=== PATIENT | male | born 1960 ===

== ENCOUNTER 2018-08-16 14:20 | Inpatient (IN) | payer BC ==
[2018-08-16 14:20] VITALS: BMI 27.3
--- NOTE | 2018-08-16 15:12 | ED PDOC ---
Arrival/HPI - General Chief Complaint: Lower Extremity Problem/Injury Time Seen by Provider: 08/16/18 14:43 Historian: Patient - History of Present Illness Narrative History of Present Illness (Text): 08/16/18 16:43 58yo male with with pmhx of hypertension and recent embolic stroke referred to ED by Dr. Moore for severe right calf pain. Patient states he had angioplasty few days ago and started having the calf pain s/p. States he is currently on Coumadin 4.5mg daily. Denies chest pain, SOB, diaphoresis, nausea, vomiting, dizziness, any other complaint. Past Medical History - Provider Review Nursing Documentation Reviewed: Yes - Infectious Disease Hx of Infectious Diseases: None - Cardiac Hx Cardiac Disorders: No - Pulmonary Hx Respiratory Disorders: No - Neurological Hx Neurological Disorder: No HX Cerebrovascular Accident: Yes - HEENT Hx HEENT Disorder: Yes (hard of hearing) - Renal Hx Renal Disorder: No - Endocrine/Metabolic Hx Endocrine Disorders: No - Hematological/Oncological Hx Blood Disorders: No - Integumentary Hx Dermatological Disorder: No - Musculoskeletal/Rheumatological Hx Musculoskeletal Disorders: No - Gastrointestinal Hx Gastrointestinal Disorders: No - Genitourinary/Gynecological Hx Genitourinary Disorders: No - Psychiatric Hx Psychophysiologic Disorder: No Hx Substance Use: No - Surgical History Hx Tonsillectomy: Yes Other/Comment: loop recorder - Anesthesia Hx Anesthesia: Yes Hx Anesthesia Reactions: No Family/Social History - Physician Review Nursing Documentation Reviewed: Yes Family/Social History: Unknown Family HX Smoking Status: Current Some Days Smoker Hx Alcohol Use: Yes Hx Substance Use: No Allergies/Home Meds Allergies/Adverse Reactions: Allergies No Known Allergies Allergy (Verified 09/13/15 10:32) Home Medications: Home Meds Medication Instructions Recorded Confirmed Rosuvastatin Calcium [Crestor] 1 tab PO HS 08/16/18 08/16/18 Warfarin [Coumadin] 4.5 mg PO DAILY 08/16/18 08/16/18 amLODIPine [Norvasc] 10 mg PO PRN PRN 08/16/18 08/16/18 Review of Systems - Physician Review All systems were reviewed & negative as marked: Yes - Review of Systems Constitutional: Normal Eyes: Normal ENT: Normal Respiratory: Normal Cardiovascular: Normal Gastrointestinal: Normal Genitourinary Male: Normal Musculoskeletal: Arthralgias (Right calf pain) Skin: Normal Neurological: Normal Endocrine: Normal Hemo/Lymphatic: Normal Psychiatric: Normal Physical Exam Vital Signs Reviewed: Yes Vital Signs Temp Pulse Resp BP Pulse Ox 08/16/18 14:39 98.6 F 76 18 100/65 98 Temperature: Afebrile Blood Pressure: Normal Pulse: Regular Respiratory Rate: Normal Appearance: Positive for: Well-Appearing, Non-Toxic, Comfortable Pain Distress: None Mental Status: Positive for: Alert and Oriented X 3 - Systems Exam Head: Present: Atraumatic, Normocephalic Pupils: Present: PERRL Extroacular Muscles: Present: EOMI Conjunctiva: Present: Normal Mouth: Present: Moist Mucous Membranes Neck: Present: Normal Range of Motion Respiratory/Chest: Present: Clear to Auscultation, Good Air Exchange. No: Respiratory Distress, Accessory Muscle Use Cardiovascular: Present: Regular Rate and Rhythm, Normal S1, S2. No: Murmurs Abdomen: No: Tenderness, Distention, Peritoneal Signs Back: Present: Normal Inspection Upper Extremity: Present: Normal Inspection. No: Cyanosis, Edema Lower Extremity: Present: CALF TENDERNESS (Right calf), NORMAL PULSES, Miguel's Sign (Positive on right leg), Neurovascularly Intact. No: Edema, Swelling, Erythema, Temperature Abnormalties Neurological: Present: GCS=15, CN II-XII Intact, Speech Normal Skin: Present: Warm, Dry, Normal Color. No: Rashes Psychiatric: Present: Alert, Oriented x 3, Normal Insight, Normal Concentration Medical Decision Making ED Course and Treatment: 08/16/18 18:17 58yo male referred to RD for right calf pain. Pt was very tender on palpation of his right calf. PT is currently on Coumadin s/p embolic stroke. Labs Pt/PTT/INR Doppler US 08/16/18 18:20 Doppler US report - Isolated thrombus in a right gastrocnemius vein. Lab was reviewed and pt is however therapeutic with his INR of 2.99. Case was DW Dr. Moore and pt was admitted to her service. She requested vancomycin and Rocephin for possible thrombophelbitis and it was ordered. All result and plan was DW the pt and he agreed - RAD Interpretation Radiology Orders: 08/16/18 14:45 DUPLEX LOWER EXTRM VEIN BILAT [US] Stat Disposition/Present on Arrival - Present on Arrival Any Indicators Present on Arrival: No History of DVT/PE: No History of Uncontrolled Diabetes: No Urinary Catheter: No History of Decub. Ulcer: No History Surgical Site Infection Following: None - Disposition Have Diagnosis and Disposition been Completed?: Yes Diagnosis: DVT (deep venous thrombosis) Disposition: HOME/ ROUTINE Disposition Time: 16:40 Patient Plan: Admission Patient Problems: Current Active Problems Problem Status Onset DVT (deep venous thrombosis) Acute Condition: STABLE
--- NOTE | 2018-08-16 16:14 | US ---
HISTORY: Leg pain and swelling. Evaluate for DVT PHYSICIAN(S): Ruben Dee MD. TECHNIQUE: Duplex sonography and color-flow Doppler with graded compression were used to evaluate the deep venous systems of both lower extremities. FINDINGS: There is isolated occlusive thrombus in a solitary right gastrocnemius vein. The visualized tibial veins on the right are patent and compressible. The right popliteal vein, right femoral vein, and right common femoral vein are normal and compressible. There is no sonographic evidence for deep venous thrombosis the visualized segments of the left upper extremity IMPRESSION: Isolated thrombus in a right gastrocnemius vein. Follow-up ultrasound in 7-10 days is recommended.
[2018-08-16 16:38] LABS: ALB/GLOB RATIO 1.3 (1.1-1.8); ALBUMIN 3.9 g/dL (3.0-4.8); ALT/SGPT 41 U/L (7-56); AST/SGOT 27 U/L (17-59); BLOOD UREA NITROGEN 14 mg/dL (7-21); CALCIUM 9.1 mg/dL (8.4-10.5); GFR NON-AFRICAN AMERICAN > 60
[2018-08-16 16:54] LABS: BASO # 0.02 K/mm3 (0.0-2.0); BASO % 0.2 % (0.0-3.0); EOS # 0.1 (0.0-0.7); EOS % 0.5 % (1.5-5.0); GRAN # 7.04 (1.4-6.5); GRAN % 73.4 % (50.0-68.0); HEMOGLOBIN 10.5 g/dL (14.0-18.0); MEAN CORPUSCULAR HGB CONC 33.3 g/dl (31.0-37.0); MEAN PLATELET VOLUME 10.9 fl (7.0-11.0); MONO # 0.5 (0.1-0.6); MONO % 4.9 % (1.0-6.0); RBC 3.5 10^6/uL (3.5-6.1); RED CELL DISTRIBUTION WIDTH 13.9 % (11.5-14.5); WHITE BLOOD COUNT 9.6 10^3/ul (4.5-11.0)
[2018-08-16 16:56] LABS: INR 2.99; PARTIAL THROMBOPLASTIN TIME 34.5 Seconds (25.1-36.5); PROTHROMBIN TIME 34.9 SECONDS (9.4-12.5)
[2018-08-16] MEDS ORDERED: Vancomycin 1gm in NS 250ml 1 GM/250 ML BAG IVPB STA (17:36)
[2018-08-16] MEDS ORDERED: cefTRIAXone 1 gm 1 GM/100 ML BAG IVPB STA (17:37)
[2018-08-16] MEDS ORDERED: Oxycodone/Acetaminophen 5/325 mg Tab PO STA (18:19)
[2018-08-16] MEDS ORDERED: Oxycodone/Acetaminophen 5/325 mg Tab PO PRN (19:50)
[2018-08-16 22:28] VITALS: RESP 20
--- NOTE | 2018-08-17 06:15 | HP ---
HISTORY OF PRESENT ILLNESS: The patient is 58 years old, recently had an embolic stroke, after that as a workup, he end up having loop recorder and he was sent home. He was sent home on Lovenox and p.o. Coumadin but he end up coming back with profuse bleeding from his chest wall site of insertion so he was given FFP and was under observation, he end up having loop recorder removed. Three days ago, he called my office that his left leg is hurting. I ordered venous Doppler that was negative for DVT. He was advised to take Tylenol with no significant relief. Today, he came in office crying with pain. So he was sent to emergency room for further evaluation for possible muscular issue versus new blood clot. PAST MEDICAL HISTORY: Significant for gastritis and recent embolic stroke to occipital, bilateral thalamic and cerebellar, stroke leading to extreme dizziness. ALLERGIES: HE IS NOT ALLERGIC TO ANY MEDICATIONS. MEDICATIONS: At home, he is on Coumadin 3 mg daily, he is on amlodipine 10 mg daily, Crestor 5 mg daily. SOCIAL HISTORY: He is , lives with his . He socially drinks once in a while and socially smokes. PHYSICAL EXAMINATION: GENERAL: He is awake, alert, oriented, walking with cane, complained of pain in the left leg, communicative. VITAL SIGNS: He is afebrile, pulse 82, respirations 18, blood pressure 126/82. LUNGS: Bilateral fair airflow. No rhonchi or crackle. HEART: S1 ,S2 audible. ABDOMEN: Soft, nontender. No rebound. No guarding. NEUROLOGICAL: Patient is awake, alert, oriented, communicative. LABORATORY EXAM: WBC is 9.6, hemoglobin 10.5, hematocrit 31.5, platelet 288. PT 39.9. INR 2.99, PTT 34.5. Chemistry: Sodium 139, potassium 4.1, chloride 105, CO2 of 25, BUN 14, creatinine 1. Blood sugar 84. LFTs are within normal limit. He has leg Doppler done. He has isolated thrombus in his left gastrocnemius vein. However, the leg Doppler done on was unremarkable. ASSESSMENT: 1. Right calf pain secondary to gastrocnemius vein thrombosis with suppurative thrombophlebitis. 2. Recent embolic stroke. 3. Status post loop recorder removal secondary to hemorrhage. PLAN: We will give warm compresses to the area. Start him on antibiotics, analgesic as needed. We will start him on Norvasc 5 mg daily and start him on small dose of statins. We will follow up in a.m. Dr. Bay also has been consulted. Jacqueline Moore MD
[2018-08-17 06:23] LABS: INR 3.08; PROTHROMBIN TIME 36.3 SECONDS (9.4-12.5)
[2018-08-17 08:12] VITALS: BP 116/81; PULSE 61; TEMP 98; O2SAT 97
--- NOTE | 2018-08-17 09:59 | RAD ---
Date of service: 08/16/2018 HISTORY: admission COMPARISON: No prior. FINDINGS: LUNGS: No active pulmonary disease. PLEURA: No significant pleural effusion identified, no pneumothorax apparent. CARDIOVASCULAR: Normal. OSSEOUS STRUCTURES: No significant abnormalities. VISUALIZED UPPER ABDOMEN: Normal. OTHER FINDINGS: None. IMPRESSION: No acute cardiopulmonary disease appreciated.
[2018-08-17] MEDS ORDERED: cefTRIAXone 1 gm 1 GM/100 ML BAG IVPB SCH (10:00)
--- NOTE | 2018-08-17 10:21 | CARD ---
APPROVED REPORT Date of service: 08/16/2018 EKG Measurement Heart [id number] <Conclusion> Normal sinus rhythm Minimal voltage criteria for LVH, may be normal variant
--- NOTE | 2018-08-17 10:54 | CON ---
DATE: 08/17/2018 HISTORY OF PRESENT ILLNESS: Mr. Burkett is a 58-year-old male, recently had an embolic stroke. He is being worked up for thromboembolism. He presented with DVT in right lower extremity in gastrocnemius, isolated. He is currently on Coumadin with therapeutic INR. Complaining of pain in the right leg. No nausea. No vomiting. No chest pain. No shortness of breath. PAST MEDICAL HISTORY: Gastritis, recent embolic stroke. ALLERGIES: NO KNOWN DRUG ALLERGIES. HOME MEDICATIONS: Coumadin 3 mg daily, amlodipine 10 mg, Crestor 5 mg. SOCIAL HISTORY: , lives with the . PERSONAL HISTORY: Nonsmoker. No history of alcohol abuse. PHYSICAL EXAMINATION: GENERAL: Comfortable in bed. Awake, alert, oriented. VITAL SIGNS: Afebrile, temperature 98.7; heart rate 82 per minute; blood pressure 126/82. LUNGS: Air entry present and equal, bilateral. No added sound. CARDIOVASCULAR: S1, S2 normal. No murmur. No gallop. ABDOMEN: Soft, nontender. No hepatosplenomegaly. EXTREMITY: No edema. Right calf tender. LABORATORY DATA: White count 9.6, hemoglobin 10.5, hematocrit 31.5, platelet 288. INR 2.9. Sodium 139, potassium 4.1, creatinine 1. LFTs within normal limits. ASSESSMENT: Recent deep vein thrombosis, right gastrocnemius with superficial thrombophlebitis. Recent embolic stroke. Status post loop recorder. Status post hemorrhage, removal of the recorder. PLAN: He is therapeutic on Coumadin. We will continue Coumadin 3 mg daily. Monitor PT/INR. 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 Factor V Leiden, prothrombin gene mutation, antiphospholipid antibodies were negative. Protein C, protein S levels were not done during last hospitalization. We will test protein C, protein S in 1-2 weeks. Recent thromboembolism can alter those levels. We will also check the homocysteine level which can be elevated with MTHFR gene mutation. Folic acid 1 mg p.o. daily for lifelong. He will need anticoagulation for thromboembolic stroke for at least 6 months to 1 year. Renal function is within normal limit. Thank you, Dr. Moore for allowing us to participate in Mr. Burkett's care. We will continue to follow. Massiel Bay MD [facility] # [id number]
--- NOTE | 2018-08-18 10:40 | DS ---
HISTORY OF PRESENT ILLNESS: The patient is a 58-year-old, who was admitted yesterday because of excruciating pain in his right calf. His sonogram done on 08/14/2018 was negative; however, sonogram done yesterday shows gastrocnemius vein thrombosis, possible thrombophlebitis causing pain. Otherwise, no chest pain, no shortness of breath. No active bleeding anywhere. PHYSICAL EXAMINATION: VITAL SIGNS: He is afebrile. Pulse 61, respirations 20, blood pressure 116/81. LUNGS: Bilateral fair airflow. No rhonchi or crackle. HEART: S1 ,S2 audible. ABDOMEN: Soft, nontender. No rebound. No guarding. NEUROLOGICAL: The patient is awake, alert, oriented, communicative. LABORATORY DATA: His PT is 36.3, INR 3.08. Chemistry: Sodium 138, potassium 4.1, chloride 105, CO2 of 25, BUN 14, creatinine 1, blood sugar of 84. ASSESSMENT: 1. History of embolic stroke. 2. Right calf deep vein thrombosis. 3. Hypertension. 4. Hyperlipidemia. 5. Anemia secondary to blood loss. PLAN: The patient will be discharged home today. We will hold Coumadin for today. He is given iron infusion. We will discharge him on Ceftin 500 twice a day for 5 days and we will start him on folic acid 1 mg daily and he will continue Crestor 5 mg daily at home and I will follow up him in office next week. Jacqueline Moore MD
== END 2018-08-17 16:15 | disposition home or self-care (01) | DRG 301 ==
LOC: ED 14:20 → ERH 18:11 → 3RNO 21:54
PROVIDERS: ADMIT Internal Medicine; ATTEND Internal Medicine
DX: I82.4Z1 Acute embolism and thrombosis of unspecified deep veins of right distal lower extremity (principal); D50.0 Iron deficiency anemia secondary to blood loss (chronic); E78.5 Hyperlipidemia, unspecified; H91.90 Unspecified hearing loss, unspecified ear; I10 Essential (primary) hypertension; Z79.01 Long term (current) use of anticoagulants; Z86.73 Personal history of transient ischemic attack (TIA), and cerebral infarction without residual deficits

== ENCOUNTER 2018-09-22 11:18 | Emergency (ER) | payer BC, OTHER ==
[2018-09-22 11:18] VITALS: BMI 28.8
--- NOTE | 2018-09-22 11:52 | ED PDOC ---
Arrival/HPI - General Historian: Patient - History of Present Illness Narrative History of Present Illness (Text): 09/22/18 11:48 58 year old male with a past medical history of hemorrhagic cva, right calf dvt, hypertension, hyperlipidemia, and anemia who presents today with posterior headache since last night. Patient rates the pain initially last night a 10/10, however upon presentation today he rates it a 2/10 in severity. Patient took his blood pressure and it read 140's systolic and was instructed by PMD Dr. Moore to take his Norvasc. Patient also admits to losing balance once last night. Presently, he denies any chest pain, palpitations, fevers, chills, constipation, diarrhea, syncopal episodes, changes in vision, or any other complaints. PMD: Dr. Moore Neurologist: Dr. Flood Medical history: htn, hld, anemia, r calf dvt, hemorrhagic cva Mediciations: Coumadin, Crestor, Norvasc Allergies: Hay Fever Social history: Cigars socially. Denies alcohol or illicit drug. Time/Duration: 24 hours Symptom Onset: Sudden Symptom Course: Unchanged Quality: Throbbing Severity Level: 2 Activities at Onset: Rest Context: Sitting <Lars Robertson - Last Filed: 09/22/18 18:12> <Shai Jacobson DO - Last Filed: 09/23/18 10:54> - General Chief Complaint: Weakness/Neurological Deficit Time Seen by Provider: 09/22/18 11:21 Past Medical History - Provider Review Nursing Documentation Reviewed: Yes - Infectious Disease Hx of Infectious Diseases: None - Cardiac Hx Hypertension: Yes - Pulmonary Hx Respiratory Disorders: No - Neurological Hx Neurological Disorder: No HX Cerebrovascular Accident: Yes (July 2018) Hx Transient Ischemic Attacks (TIA): Yes Other/Comment: hemorrhagic stroke - HEENT Hx HEENT Disorder: Yes (hard of hearing) - Renal Hx Renal Disorder: No - Endocrine/Metabolic Hx Endocrine Disorders: No - Hematological/Oncological Hx Blood Disorders: No - Integumentary Hx Dermatological Disorder: No - Musculoskeletal/Rheumatological Hx Musculoskeletal Disorders: No Hx Falls: No - Gastrointestinal Hx Gastrointestinal Disorders: No - Genitourinary/Gynecological Hx Genitourinary Disorders: No - Psychiatric Hx Psychophysiologic Disorder: No Hx Substance Use: No - Surgical History Other/Comment: loop recorder - Anesthesia Hx Anesthesia: Yes Hx Anesthesia Reactions: No Hx Malignant Hyperthermia: No <Lars Robertson - Last Filed: 09/22/18 18:12> Family/Social History - Physician Review Nursing Documentation Reviewed: Yes Family/Social History: No Known Family HX Smoking Status: Former Smoker Hx Alcohol Use: Yes (occasionally) Hx Substance Use: No <Lars Robertson - Last Filed: 09/22/18 18:12> Allergies/Home Meds <Lars Robertson - Last Filed: 09/22/18 18:12> <Shai Jacobson DO - Last Filed: 09/23/18 10:54> Allergies/Adverse Reactions: Allergies No Known Allergies Allergy (Verified 09/22/18 11:32) Home Medications: Home Meds Medication Instructions Recorded Confirmed Rosuvastatin Calcium [Crestor] 1 tab PO HS 08/16/18 09/22/18 amLODIPine [Norvasc] 10 mg PO PRN PRN 08/16/18 09/22/18 Carvedilol [Coreg] 3.125 mg PO DAILY 09/06/18 09/22/18 Review of Systems - Physician Review All systems were reviewed & negative as marked: Yes - Review of Systems Constitutional: Normal. absent: Fatigue, Weight Change, Fevers Eyes: Normal. absent: Vision Changes, Photophobia ENT: Normal. absent: Hearing Changes, Tinnitus Respiratory: Normal. absent: SOB, Cough Cardiovascular: Normal. absent: Chest Pain, Palpitations Gastrointestinal: Normal. absent: Abdominal Pain, Stool Changes, Diarrhea, Nausea, Vomiting Genitourinary Male: Normal. absent: Dysuria, Frequency, Hematuria Musculoskeletal: Normal. absent: Arthralgias, Back Pain, Neck Pain Skin: Normal. absent: Rash, Pruritis Neurological: Headache. absent: Dizziness, Facial Droop, Disequilibrium Endocrine: Normal. absent: Diaphoresis, Polyuria, Polydipsia Hemo/Lymphatic: Normal. absent: Adenopathy, Easy Bleeding <Lars Robertson - Last Filed: 09/22/18 18:12> Physical Exam Vital Signs Reviewed: Yes Vital Signs Temp Pulse Resp BP Pulse Ox 09/22/18 11:24 97.8 F 89 19 119/80 99 Temperature: Afebrile Blood Pressure: Normal Pulse: Regular Respiratory Rate: Normal Appearance: Positive for: Well-Appearing, Non-Toxic, Comfortable Pain Distress: None Mental Status: Positive for: Alert and Oriented X 3. No: Confused, Agitated - Systems Exam Head: Present: Atraumatic, Normocephalic Pupils: Present: PERRL. No: Sluggish, Non-Reactive Extroacular Muscles: Present: EOMI. No: Gaze Palsy Conjunctiva: Present: Normal. No: Injected Mouth: Present: Moist Mucous Membranes. No: Dry, Normal Teeth Neck: Present: Normal Range of Motion. No: Meningeal Signs, JVD Respiratory/Chest: Present: Clear to Auscultation, Good Air Exchange. No: Wheezes, Decreased Breath Sounds Cardiovascular: Present: Regular Rate and Rhythm, Normal S1, S2. No: Murmurs Abdomen: Present: Normal Bowel Sounds. No: Tenderness, Distention, Guarding, Feeding Tubes Upper Extremity: Present: Normal Inspection. No: Cyanosis, Edema, Erythema Lower Extremity: Present: Normal Inspection. No: Edema Neurological: Present: CN II-XII Intact, Speech Normal. No: Normal Sensory Function, Normal Cerebellar Funct Skin: Present: Dry. No: Rashes, Normal Color Psychiatric: Present: Oriented x 3, Normal Insight <Lars Robertson - Last Filed: 09/22/18 18:12> Vital Signs Temp Pulse Resp BP Pulse Ox 09/22/18 11:24 97.8 F 89 19 119/80 99 <Shai Jacobson DO - Last Filed: 09/23/18 10:54> Medical Decision Making ED Course and Treatment: 09/22/18 11:55 58 year old male with a past medical history of htn, hld, anemia, right calf dvt, and hemorrhagic cva presents with throbbing headache. CVA vs. Space occupying lesion Plan: Head ct cbc cmp Troponin - RAD Interpretation Radiology Orders: 09/22/18 11:46 HEAD W/O CONTRAST [CT] Stat - EKG Interpretation EKG Interpretation (Text): 09/22/18 12:39 NSR @[address]-T Changes Interpreted by ED Physician: Yes Comparison: Similar to previous EKG <Lars Robertson - Last Filed: 09/22/18 18:12> ED Course and Treatment: 09/22/18 12:35 Polo Burkett is a 58 year old male with a past medical history includes hemorrhagic CVA, DVT, HTN, HLD, and anemia, who presents to the emergency department for a complaint of headache. In agreement with residents note, which includes further HPI details. Patient was seen and evaluated with resident, came up with plan and treatment together. - RAD Interpretation Radiology Orders: 09/22/18 11:46 HEAD W/O CONTRAST [CT] Stat <Shai Jacobson DO - Last Filed: 09/23/18 10:54> - PA / ZINC MINER / Resident Statement MARY has reviewed & agrees with the documentation as recorded. MARY has examined the patient and agrees with the treatment plan. <Shai Jacobson DO - Last Filed: 09/23/18 10:54> Disposition/Present on Arrival - Present on Arrival Any Indicators Present on Arrival: Yes History of DVT/PE: Yes History of Uncontrolled Diabetes: No Urinary Catheter: No History of Decub. Ulcer: No History Surgical Site Infection Following: None - Disposition Have Diagnosis and Disposition been Completed?: Yes Disposition Time: 13:15 Patient Plan: Discharge <Lars Robertson - Last Filed: 09/22/18 18:12> - Disposition Disposition Time: 12:50 <Shai Jacobson DO - Last Filed: 09/23/18 10:54> - Disposition Diagnosis: Headache Disposition: HOME/ ROUTINE Condition: IMPROVED Discharge Instructions (ExitCare): Headache, Adult (DC) Additional Instructions: POLO BURKETT, thank you for letting us take care of you today. The emergency medical care you received today was directed at your acute symptoms. If you were prescribed any medication, please fill it and take as directed. It may take several days for your symptoms to resolve. Return to the Emergency Department if your symptoms worsen, do not improve, or if you have any other problems. Please contact your doctor or call one of the physicians/clinics you have been referred to that are listed on the Patient Visit Information form that is included in your discharge packet. Bring any paperwork you were given at discharge with you along with any medications you are taking to your follow up visit. Our treatment cannot replace ongoing medical care by a primary care provider outside of the emergency department. [facility]. Follow up with your primary care doctor in 2-3 days for re-evaluation and further management. Return to hospital for any new or worsening symptoms. Referrals: Jacqueline Moore MD [Primary Care Provider] - Follow up with primary Forms: [employer] (Polish)
--- NOTE | 2018-09-22 12:40 | CT ---
Date of service: 09/22/2018 PROCEDURE: CT HEAD WITHOUT CONTRAST. HISTORY: hx of hemorrhagic cva COMPARISON: None available. TECHNIQUE: Axial computed tomography images were obtained through the head/brain without intravenous contrast. Radiation dose: Total exam DLP = 980.8 mGy-cm. This CT exam was performed using one or more of the following dose reduction techniques: Automated exposure control, adjustment of the mA and/or kV according to patient size, and/or use of iterative reconstruction technique. FINDINGS: HEMORRHAGE: No intracranial hemorrhage. BRAIN: No mass effect or edema. Old infarcts are seen in the cerebellar hemispheres right greater than left VENTRICLES: Unremarkable. No hydrocephalus. CALVARIUM: Unremarkable. PARANASAL SINUSES: Unremarkable as visualized. No significant inflammatory changes. MASTOID AIR CELLS: Unremarkable as visualized. No inflammatory changes. OTHER FINDINGS: None. IMPRESSION: No acute findings
[2018-09-22 12:49] LABS: ALB/GLOB RATIO 1.2 (1.1-1.8); ALBUMIN 4.1 g/dL (3.0-4.8); BLOOD UREA NITROGEN 11 mg/dL (7-21); CALCIUM 9.3 mg/dL (8.4-10.5); GFR NON-AFRICAN AMERICAN > 60
[2018-09-22 12:51] LABS: BASO # 0.04 K/mm3 (0.0-2.0); BASO % 0.5 % (0.0-3.0); EOS # 0.2 (0.0-0.7); EOS % 2.3 % (1.5-5.0); GRAN # 5.62 (1.4-6.5); GRAN % 67.6 % (50.0-68.0); HEMOGLOBIN 13.1 g/dL (14.0-18.0); MEAN CELL VOLUME 90.5 fl (80.0-105.0); MEAN CORPUSCULAR HEMOGLOBIN 29.7 pg (25.0-35.0); MEAN CORPUSCULAR HGB CONC 32.8 g/dl (31.0-37.0); MEAN PLATELET VOLUME 11.4 fl (7.0-11.0); MONO # 0.5 (0.1-0.6); MONO % 5.6 % (1.0-6.0); RBC 4.41 10^6/uL (3.5-6.1); RED CELL DISTRIBUTION WIDTH 13.4 % (11.5-14.5); WHITE BLOOD COUNT 8.3 10^3/uL (4.5-11.0)
[2018-09-22 12:54] LABS: AST/SGOT 43 U/L (17-59)
[2018-09-22 12:55] LABS: ALT/SGPT 40 U/L (7-56)
[2018-09-22 13:00] LABS: TROPONIN I < 0.01 ng/mL
[2018-09-22 13:44] VITALS: BP 127/82; PULSE 66; RESP 18; TEMP 98; O2SAT 97
--- NOTE | 2018-09-22 19:35 | CARD ---
APPROVED REPORT Date of service: 09/22/2018 EKG Measurement Heart [id number] <Conclusion> Normal sinus rhythm Minimal voltage criteria for LVH, may be normal variant Borderline ECG
== END 2018-09-22 13:42 | disposition home or self-care (01) ==
LOC: ED 11:18
DX: R51 Headache (principal); I10 Essential (primary) hypertension; E78.5 Hyperlipidemia, unspecified; Z86.73 Personal history of transient ischemic attack (TIA), and cerebral infarction without residual deficits; Z87.891 Personal history of nicotine dependence